=== PATIENT | female | born 1985 | race Caucasian/White ===

== ENCOUNTER 2022-09-04 15:38 | Emergency (ER) | payer SELFPAY ==
[~2022-09-04] VITALS: Ht 165.1 cm; Wt 76.0 kg
[2022-09-04 16:16] LABS: BASOPHILS # (AUTO) 0.1 X10'3 (0-0.2); BASOPHILS % (AUTO) 0.8 % (0-1); EOSINOPHILS # (AUTO) 0.2 X10'3 (0-0.9); EOSINOPHILS % (AUTO) 2.7 % (0-6); HEMOGLOBIN 14.2 g/dl (12.0-16.0); LYMPHOCYTES # (AUTO) 2.1 X10'3 (1.1-4.8); LYMPHOCYTES % (AUTO) 27.1 % (21-51); MEAN CORPUSCULAR HEMOGLOBIN 28.7 PG (27.0-31.0); MEAN CORPUSCULAR HGB CONC 32.2 g/dL (33.0-36.5); MEAN CORPUSCULAR VOLUME 89.2 FL (78-98); MEAN PLATELET VOLUME 9.5 FL (7.4-10.4); MONOCYTES # (AUTO) 0.5 X10'3 (0-0.9); MONOCYTES % (AUTO) 6.1 % (2-12); NEUTROPHILS # (AUTO) 4.8 X10'3 (1.8-7.7); NEUTROPHILS % (AUTO) 63.3 % (42-75); PLATELET COUNT 271 X10'3 (140-440); RED BLOOD COUNT 4.94 X10'6 (4.20-5.60); WHITE BLOOD COUNT 7.6 X10'3 (4.5-11.0)
[2022-09-04 16:31] LABS: ALANINE AMINOTRANSFERASE 14 U/L (12-78); ALBUMIN 4.2 G/DL (3.4-5.0); ALBUMIN/GLOBULIN RATIO 1.1 (1.1-1.5); ALKALINE PHOSPHATASE 63 IU/L (46-116); ANION GAP 13 (8-16); ASPARTATE AMINO TRANSFERASE 18 U/L (10-37); BILIRUBIN,TOTAL 0.5 MG/DL (0.1-1.0); BLOOD UREA NITROGEN 14 MG/DL (7-18); BUN/CREATININE RATIO 21.2 (10.0-20.0); CALCIUM 9.4 MG/DL (8.5-10.1); CHLORIDE 110 MMOL/L (99-107); CREATININE 0.66 MG/DL (0.40-0.90); GLUCOSE 111 MG/DL (70-104); LIPASE 80 U/L (73-393); POTASSIUM 3.4 MMOL/L (3.5-5.1); SODIUM 146 MMOL/L (135-145); TOTAL CARBON DIOXIDE 23.3 MMOL/L (24-32); eGFR > 90 ML/MIN
--- NOTE | 2022-09-04 16:50 | NUR ---
PT WAS IN THE ER LOBBY, CAUSING A DISTURBANCE; WALKING AROUND, HITTING HER HEAD ON THE FLOOR AND WRIGHT, RITHING ON THE FLOOR, ROCKING, REFUSING TO SIT IN THE CHAIRS. PT REFUSING TO FOLLOW DIRECTIONS AND CONTINUED TO DISTURB THE PT'S IN THE LOBBY. PT WAS EXCORTED OUT OF THE ER BY SECURITY AND TAKEN TO THE BUS STOP.
[2022-09-04 17:01] LABS: HCG SERUM QL NEGATIVE
== END 2022-09-04 16:58 | disposition left against medical advice (07) ==
LOC: ER 15:39
DX: R10.9 Unspecified abdominal pain (principal); R11.10 Vomiting, unspecified; Z53.21 Procedure and treatment not carried out due to patient leaving prior to being seen by health care provider
CPT/HCPCS: 36415; 80053; 83690; 84703; 85025; 99281

== ENCOUNTER 2022-10-03 11:04 | Emergency (ER) | payer MEDICAID ==
[~2022-10-03] VITALS: Ht 172.7 cm; Wt 90.0 kg
[2022-10-03 11:09] VITALS: BP 150/94
[2022-10-03] MEDS ORDERED: ONDA4TAB12 PO (11:17)
[2022-10-03] MEDS ORDERED: BUPR1FIL3 SL (11:17)
[2022-10-03] MEDS ORDERED: buprenorphine/naloxone 8MG-2MG SUBlingual film SL STA (11:18)
[2022-10-03] MEDS ORDERED: LORazepam 1 MG tablet PO ONE (11:20)
[2022-10-03] MEDS ORDERED: ondansetron 4mg rapidly disintigrating tab PO ONE (11:20)
--- NOTE | 2022-10-03 11:22 | NUR ---
Father was notified of ride home. Father will be here in about 20 mins.
--- NOTE | 2022-10-03 11:23 | NUR ---
Met with patient for [facility]. Patient has been without her Suboxone for 5 days. Patient has appt with [facility] tomorrow. I talked to Alisa she will start Suboxone here and give patient enough meds until tomorrow. Patient has my card to call me with any questions.
== END 2022-10-03 11:48 | disposition home or self-care (01) ==
LOC: ER 11:04
DX: F11.23 Opioid dependence with withdrawal (principal); F17.200 Nicotine dependence, unspecified, uncomplicated; Z56.0 Unemployment, unspecified; F41.9 Anxiety disorder, unspecified
CPT/HCPCS: 99284